=== PATIENT | female | born 1985 | race Caucasian/White ===

== ENCOUNTER 2017-08-24 18:45 | Emergency (ER) | payer OTHER ==
[~2017-08-24] VITALS: Ht 162.6 cm; Wt 80.0 kg
[~2017-08-24 18:45] MED LIST: MICO2%V PV; PRENTAB72 PO; [UNRECOGNIZED DRUG - CODE] CHEW
[2017-08-24 19:15] VITALS: BP 129/85; PULSE 74; RESP 18; TEMP 99.9; O2SAT 99
[2017-08-24] MEDS ORDERED: TETANUS/DIPHTHERIA TOXOID ADULT 0.5 ML VIAL IM ONE (19:45)
[2017-08-24] MEDS ORDERED: LIDOCAINE HCL 1% 50 ML VIAL INFIL ONE (19:45)
[2017-08-24] MEDS ORDERED: LIDOCAINE HCL 1% PF 30 ML VIAL ONE (20:18)
[2017-08-24] MEDS ORDERED: CEPH-460 PO (20:26)
--- NOTE | 2017-08-24 20:31 | PD ---
HPI Chief Complaint: Laceration/Skin Injury Time Seen by Provider: 19:20 Travel History International Travel<30 days: No Contact w/Intl Traveler<30days: No Traveled to known affect area: No History of Present Illness HPI 32-year-old female who presents to the ED for evaluation of laceration to her left thumb. Per patient she was at work when she was using a stretch box tender and she accidentally cut herself. She applied pressure and wash the wound and she decided to come here to get evaluated. This is Worker's Comp. Per patient her pain is 2 out of 10. Laceration is to the dorsal aspect of the finger. She is able to move it fully. Denies any numbness, tingling, weakness. No discoloration. Bleeding noted. Per patient the pain is mostly on the cut. Per patient is a new blade. She does not know her last tetanus shot. No other injuries reported. No other medical issues. Allergy to Neosporin brand name but she can use triple antibiotic ointment per patient. PFSH Past Medical History Medical History: Denies Significant Hx Diminished Hearing: No Tetanus Vaccination: Unknown Influenza Vaccination: No ?: Not LMP: 08/23/2017 : 3 Para: 2 Past Surgical History Section: Yes (X4) Social History Alcohol Use: No Tobacco Use: No Substance Use: No Allergies-Medications (Allergen,Severity, Reaction): Coded Allergies: bacitracin (Unverified Allergy, Severe, 08/24/17) gramicidin D (Unverified Allergy, Severe, 08/24/17) neomycin (Unverified Allergy, Severe, 08/24/17) polymyxin B (Unverified Allergy, Severe, 08/24/17) Reported Meds & Prescriptions Reported Meds & Active Scripts Active Reported ( Vit W/ Ferrous Fumara) Tab 1 Tab PO DAILY Monistat 7 (Miconazole Nitrate) 45 Gm Cr 1 Appl PV HS Augmentin (Amoxicillin/Clavulanate Potassium) 400 Mg Chw 800 Mg CHEW BID Review of Systems Except as stated in HPI: all other systems reviewed are Neg Physical Exam Narrative GENERAL: SKIN: Warm and dry. HEAD: Atraumatic. Normocephalic. EYES: Pupils equal and round. No scleral icterus. No injection or drainage. ENT: No nasal bleeding or discharge. Mucous membranes pink and moist. Tongue is midline. No uvula deviation. NECK: Trachea midline. No JVD. CARDIOVASCULAR: Regular rate and rhythm. RESPIRATORY: No accessory muscle use. Clear to auscultation. Breath sounds equal bilaterally. GASTROINTESTINAL: Abdomen soft, non-tender, nondistended. Hepatic and splenic margins not palpable. MUSCULOSKELETAL: Extremities without clubbing, cyanosis, or edema. No obvious deformities. Full range of motion of the upper and lower extremities bilaterally. 2+ pulses bilaterally. Full range of motion of all fingers. Patient has a superficial 1 cm laceration to the dorsal aspect of the left first digit. Slightly tender to palpation. Minimal bleeding noted. Just above the PIP joint. Sensation intact bilaterally. No nerve damage. No bone damage. No tendon damage noted. Laceration and that is about maybe 1/4 cm. NEUROLOGICAL: Awake and alert. No obvious cranial nerve deficits. Motor grossly within normal limits. Five out of 5 muscle strength in the arms and legs. Normal speech. PSYCHIATRIC: Appropriate mood and affect; insight and judgment normal. Data Data Last Documented VS Vital Signs Date Time Temp Pulse Resp B/P (MAP) Pulse Ox O2 Delivery O2 Flow Rate FiO2 08/24/17 19:15 99.9 74 18 129/85 (100) 99 Orders Orders Wound Care (08/24/17 19:34) Tetanus/Diphtheria Tox Adult (Tetanus/Di (08/24/17 19:45) Lidocaine 1% Inj (50 Ml) (Xylocaine 1% I (08/24/17 19:45) Splint Or Brace Apply/Monitor (08/24/17 19:34) Finger Splint (08/24/17 ) Lidocaine Pf 1% Inj (Xylocaine-Mpf 1% In (08/24/17 20:18) Ed Discharge Order (08/24/17 20:24) [facility] Medical Decision Making Medical Screen Exam Complete: Yes Emergency Medical Condition: Yes Medical Record Reviewed: Yes Differential Diagnosis Laceration versus abrasion versus skin tear Narrative Course 32-year-old female that presents to the ED for evaluation of laceration to her left thumb. Patient was properly examined and was found to have signs and symptoms consistent with laceration. No sign of nerve, tendon damage noted. At this time I recommend suturing. Patient agrees with this. She was told to get sutures removed in 2 weeks. Wound care was endorsed. She will given a short prescription for antibiotics to cover for infection. Follow-up with PCP. Wound care endorsed. see ED worsening symptoms. Procedures Procedure Narrative LACERATION LOCATION: left thumb LENGTH: 1 cm NUMBER OF STITCHES/JUSTINA: 5 sutures REPAIR: The area of the laceration was prepped with Betadine and sterilely draped. The laceration was infiltrated with 1% Xylocaine. The wound was copiously irrigated and explored without evidence of foreign body, tendon injury or neurovascular injury. The wound was closed using 4-0 Ethilone. This was a 1 layer repair. A sterile dressing was applied. The patient was advised to keep the dressing clean and dry. Patient tolerated the procedure well. Diagnosis Primary Impression: Laceration Patient Instructions: General Instructions Additional Instructions: Wound care daily with soap and water. You can apply bandaid if needed. OTC antibiotic ointment to area as needed twice a day for at least 2 weeks to help with scarring and prevent infection. Meoderma OTC for scarring if needed. Avoid sun exposure for 2 months as the sun could make scar darker and more noticeable. Get sutures removed in 14 days. See ED if worst. Med/Other Pt SpecificInfo: Prescription(s) given Scripts Cephalexin (Keflex) 500 Mg Cap 500 MG PO Q12H for Infection for 5 Days, #10 CAP 0 Refills Prov: Shantelle Richardson MD 08/24/17 Disposition: 01 DISCHARGE HOME Condition: Stable Monty Martini Aug 24, 2017 20:31
== END 2017-08-24 21:28 | disposition home or self-care (01) ==
LOC: NEPK 18:45
DX: S61.012A Laceration without foreign body of left thumb without damage to nail, initial encounter (principal); W26.8XXA Contact with other sharp object(s), not elsewhere classified, initial encounter; Y99.0 Civilian activity done for income or pay; Z23 Encounter for immunization
CPT/HCPCS: 12001; 90471; 90714